=== PATIENT | female | born 1960 | race Caucasian/White ===

== ENCOUNTER 2024-04-10 16:11 | Emergency (ER) | payer MEDICAID ==
[~2024-04-10] VITALS: Ht 170.2 cm; Wt 50.9 kg
[2024-04-10] MEDS ORDERED: CELE-193 PO (19:10)
[2024-04-10] MEDS: ondansetron 4mg rapidly disintigrating tab PO ONE (20:11)
[2024-04-10] MEDS: HYDROcodone/acetaminophen 5mg/325mg tablet PO ONE (20:11)
[2024-04-10 20:15] VITALS: TEMP 98.2
[2024-04-10] MEDS ORDERED: HYDR-3965 PO (20:55)
[2024-04-10] MEDS ORDERED: LIDO700A32 TOP (20:55)
[2024-04-10] MEDS: LIDOcaine 5% patch TP ONE (21:06)
[2024-04-10 21:09] VITALS: BP 99/61; PULSE 82; RESP 16; O2SAT 95
== END 2024-04-10 21:14 | disposition home or self-care (01) ==
LOC: ER 16:12
DX: S22.31XA Fracture of one rib, right side, initial encounter for closed fracture (principal); R07.81 Pleurodynia; Z88.2 Allergy status to sulfonamides; Z88.1 Allergy status to other antibiotic agents; Z79.899 Other long term (current) drug therapy; W06.XXXA Fall from bed, initial encounter; Y93.89 Activity, other specified; Y92.89 Other specified places as the place of occurrence of the external cause; Y99.8 Other external cause status
CPT/HCPCS: 71100; 99284

== ENCOUNTER 2024-05-09 18:48 | Emergency (ER) | payer MEDICAID ==
[~2024-05-09 18:48] MED LIST: HYDR-3965 PO; LIDO700A32 TOP
[2024-05-09 19:02] VITALS: TEMP 97.5
[2024-05-09 19:50] LABS: BASOPHILS % (AUTO) 0.5 % (0-1); EOSINOPHILS % (AUTO) 0.7 % (0-6); HEMATOCRIT 43.1 % (35.0-45.0); HEMOGLOBIN 14.6 g/dl (12.0-16.0); LYMPHOCYTES # (AUTO) 1.7 X10'3 (1.1-4.8); LYMPHOCYTES % (AUTO) 31.1 % (21-51); MEAN CORPUSCULAR HEMOGLOBIN 35.1 PG (27.0-31.0); MEAN CORPUSCULAR HGB CONC 33.9 g/dL (33.0-36.5); MEAN CORPUSCULAR VOLUME 103.4 FL (78-98); MEAN PLATELET VOLUME 6.4 FL (7.4-10.4); MONOCYTES # (AUTO) 0.2 X10'3 (0-0.9); MONOCYTES % (AUTO) 4.3 % (2-12); NEUTROPHILS # (AUTO) 3.6 X10'3 (1.8-7.7); NEUTROPHILS % (AUTO) 63.4 % (42-75); PLATELET COUNT 213 X10'3 (140-440); RED BLOOD COUNT 4.17 X10'6 (4.20-5.60); RED CELL DISTRIBUTION WIDTH 17.6 % (11.5-14.5); WHITE BLOOD COUNT 5.6 X10'3 (4.5-11.0)
[2024-05-09 20:02] LABS: ALANINE AMINOTRANSFERASE 22 U/L (12-78); ALBUMIN 3.3 G/DL (3.4-5.0); ALBUMIN/GLOBULIN RATIO 0.7 (1.1-1.5); ALKALINE PHOSPHATASE 137 IU/L (46-116); ANION GAP 13 (8-16); ASPARTATE AMINO TRANSFERASE 33 U/L (10-37); BILIRUBIN,TOTAL 0.4 MG/DL (0.1-1.0); BLOOD UREA NITROGEN 5 MG/DL (7-18); BUN/CREATININE RATIO 18.5 (10.0-20.0); CALCIUM 8.8 MG/DL (8.5-10.1); CHLORIDE 103 MMOL/L (99-107); CREATININE 0.27 MG/DL (0.40-0.90); GLUCOSE 83 MG/DL (70-104); POTASSIUM 3.4 MMOL/L (3.5-5.1); SODIUM 140 MMOL/L (135-145); TOTAL PROTEIN 7.8 G/DL (6.4-8.2); eGFR > 90 ML/MIN
[2024-05-09 22:19] VITALS: BP 142/83; PULSE 72; RESP 16; O2SAT 96
== END 2024-05-09 22:23 | disposition home or self-care (01) ==
LOC: ER 18:49
DX: M25.522 Pain in left elbow (principal); Z88.0 Allergy status to penicillin; Z88.2 Allergy status to sulfonamides; Z88.8 Allergy status to other drugs, medicaments and biological substances
CPT/HCPCS: 36415; 73080; 80053; 85025; 99284

== ENCOUNTER 2024-07-18 19:55 | Inpatient (IN) | payer MEDICARE, MEDICAID ==
[~2024-07-18] VITALS: Ht 170.2 cm; Wt 52.0 kg
[~2024-07-18 19:55] MED LIST changes: -HYDR-3965 PO
[2024-07-18 20:23] LABS: BASOPHILS % (AUTO) 0.9 % (0-1); HEMATOCRIT 31.3 % (35.0-45.0); HEMOGLOBIN 10.6 g/dl (12.0-16.0); LYMPHOCYTES # (AUTO) 1.1 X10'3 (1.1-4.8); LYMPHOCYTES % (AUTO) 31.1 % (21-51); MEAN CORPUSCULAR HEMOGLOBIN 38.2 PG (27.0-31.0); MEAN CORPUSCULAR HGB CONC 33.8 g/dL (33.0-36.5); MEAN PLATELET VOLUME 6.6 FL (7.4-10.4); MONOCYTES # (AUTO) 0.3 X10'3 (0-0.9); MONOCYTES % (AUTO) 8.2 % (2-12); NEUTROPHILS # (AUTO) 2.1 X10'3 (1.8-7.7); NEUTROPHILS % (AUTO) 58.8 % (42-75); PLATELET COUNT 219 X10'3 (140-440); RED BLOOD COUNT 2.77 X10'6 (4.20-5.60); RED CELL DISTRIBUTION WIDTH 19.9 % (11.5-14.5); WHITE BLOOD COUNT 3.5 X10'3 (4.5-11.0)
[2024-07-18 20:39] LABS: ALANINE AMINOTRANSFERASE 61 U/L (12-78); ALBUMIN 2.7 G/DL (3.4-5.0); ALBUMIN/GLOBULIN RATIO 0.7 (1.1-1.5); ALKALINE PHOSPHATASE 117 IU/L (46-116); ANION GAP 14 (8-16); ASPARTATE AMINO TRANSFERASE 212 U/L (10-37); BILIRUBIN,TOTAL 0.7 MG/DL (0.1-1.0); BLOOD UREA NITROGEN 4 MG/DL (7-18); BUN/CREATININE RATIO 7.8 (10.0-20.0); CALCIUM 8.3 MG/DL (8.5-10.1); CHLORIDE 103 MMOL/L (99-107); CREATININE 0.51 MG/DL (0.40-0.90); GLUCOSE 73 MG/DL (70-104); LIPASE 34 U/L (16-77); POTASSIUM 2.1 MMOL/L (3.5-5.1); SODIUM 142 MMOL/L (135-145); TOTAL CARBON DIOXIDE 25.3 MMOL/L (24-32); TOTAL PROTEIN 6.5 G/DL (6.4-8.2); eCRCL 90 ML/MIN; eGFR > 90 ML/MIN
--- NOTE | 2024-07-18 20:47 | Physician Documentation ---
History of Present Illness ~ General Chief Complaint: Abnormal Lab(s) Stated Complaint: LOW POTASSIUM Time Seen by MD: 20:40 Primary Medical Doctor: OBDULIA Mode of Arrival: EMS History of Present Illness Initial Comments Patient presents to the emergency room for evaluation of abnormal labs. Patient recently moved from [place] and was getting established at [facility] and basic labs were performed and was told to come to the emergency room because of her low potassium. She does endorse significant diarrhea over the past two months ever since she was at [facility] for rehab after a fall. She states she has been feeling generally weak for the past two months. No fevers. She denies history of high blood pressure. No new medications Medication Reconciliation Allergies: Coded Allergies: Penicillins (Verified Allergy, Unknown, rash, 05/09/24) States reaction >5 years ago, describes as a rash and required treatment. Sulfa (Sulfonamide Antibiotics) (Verified Allergy, Unknown, 05/09/24) Tetracyclines (Verified Allergy, Unknown, 05/09/24) Scheduled Lidocaine (Lidoderm), 1 PATCH TOP DAILY Review of Systems ROS All review of systems negative except as per HPI Physical Exam Physical Exam Vital Signs: Temperature: 98.6, Source: Oral, Heart Rate: 96, Respiratory Rate: 16, BP: 143/73, Pulse Oximetry: 96, Weight: 52.000 Oxygen Flow Rate: 0 Physical Exam General: Patient is awake, alert, oriented x4 in no acute distress Head: Normocephalic and atraumatic. Eyes: Conjunctival normal. EOMI. PERRL. ENT: Mucous membranes moist. Neck: Supple, trachea is midline. Chest: Clear to auscultation bilaterally without rales, rhonchi, or wheezes. There is no accessory muscle use or retractions. Cardiac: RRR without murmurs, gallops, or rubs. Abd: Soft, nondistended, nontender, with normoactive bowel sounds. No guarding, rebound, or rigidity. Extremities: Left above the knee amputation noted. Left arm in his sling that has neurovascularly intact. Progress Results/Orders Results/Orders Orders - GEORGI ROTH MD Urinalysis, Cult If Indicated (07/18/24 20:06) Cbc/Diff (07/18/24 20:06) BMP (07/18/24 20:06) Lipase (07/18/24 20:06) CMP (07/18/24 20:06) C Diff Toxin (07/18/24 20:07) Man Diff (07/18/24 20:15) Magnesium Sulf-Water 2g/50ml (Magnesium (07/18/24 21:00) Potassium Cl 40meq/1/2ns 520ml ([place] (07/19/24 00:00) MG (07/18/24 20:15) PHOS (07/18/24 20:15) Completed Orders - GEORGI ROTH MD Electrocardiogram (07/18/24 20:44) Vital Signs 07/18/24 07/18/24 19:56 20:20 Temp 98.6 Pulse 96 Resp 16 B/P (MAP) 143/73 Pulse Ox 96 O2 Flow Rate 0 Laboratory Tests Test 07/18/24 20:15 White Blood Count 3.5 L Red Blood Count 2.77 L Hemoglobin 10.6 L Hematocrit 31.3 L Mean Corpuscular Volume 113.0 H Mean Corpuscular Hemoglobin 38.2 H Mean Corpuscular Hemoglobin Concent 33.8 Red Cell Distribution Width 19.9 H Platelet Count 219 Mean Platelet Volume 6.6 L Neutrophils (%) (Auto) 58.8 Lymphocytes (%) (Auto) 31.1 Monocytes (%) (Auto) 8.2 Eosinophils (%) (Auto) 1.0 Basophils (%) (Auto) 0.9 Neutrophils # (Auto) 2.1 Lymphocytes # (Auto) 1.1 Monocytes # (Auto) 0.3 Eosinophils # (Auto) 0.0 Basophils # (Auto) 0.0 CBC Comment Basophilic Stippling Sodium Level 142 Potassium Level 2.1 *L Chloride Level 103 Carbon Dioxide Level 25.3 Anion Gap 14 Blood Urea Nitrogen 4 L Creatinine 0.51 Estimated GFR/1.73 m2 > 90 BUN/Creatinine Ratio 7.8 L Glucose Level 73 Calcium Level 8.3 L Total Bilirubin 0.7 Aspartate Amino Transf (AST/SGOT) 212 H Alanine Aminotransferase (ALT/SGPT) 61 Alkaline Phosphatase 117 H Total Protein 6.5 Albumin 2.7 L Globulin 3.8 Albumin/Globulin Ratio 0.7 L Lipase 34 Chemistry Comments EKG/XRAY/CT/US/VASC/MRI EKG : Additional Comment EKG interpreted by myself shows time of 2054, rate 91, sinus rhythm, normal axis, no ST changes, prolonged QT Medical Decision Making Findings Patient presented to the emergency room with a report of electrolyte disturbances. Differentials include but are not limited to high potassium, low potassium, high sodium, low sodium, medication side effect, metabolic disturbance therefore emergent labs ordered which confirmed that patient's potassium is significantly low. Empirical magnesium ordered in the light of low potassium as well as prolonged QT. vitals are otherwise stable and she is nontoxic appearing. Departure Admitted to Inpatient Unit: yes, to hospitalist Impression: Primary Impression: Hypokalemia Additional Impressions: Prolonged Q-T interval on ECG Diarrhea Condition: Guarded Referrals: NO PRIMARY CARE PROVIDER (PCP) Signature Scribe Signature: No scribe Attestation: The note accurately reflects work and decisions made by me.Georgi Roth MD 07/18/24 21:07 GEORGI ROTH MD July 18, 2024 20:47
--- NOTE | 2024-07-18 20:55 | ELECTROCARDIOGRAPH REPORT ---
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 Adolfo Galdamez Measurements Intervals [place] Rate: 93 P: 74 [place]: 154 QRS: 108 QRSD: 92 T: 20 QT: 442 QTc: 550 Interpretive Statements Sinus rhythm Right axis deviation Borderline T abnormalities, anterior leads Prolonged QT interval Electronically Signed On 07-18-2024 21:43:[address] Adolfo Galdamez Please click the below link to view image of tracing.
[2024-07-18 21:15] LABS: MAGNESIUM 1.4 MG/DL (1.5-2.4); PHOSPHORUS 3.1 MG/DL (2.3-4.5)
[2024-07-18] MEDS: potassium Cl 40MEQ/1/2NS 520ml 520 ML IV SCH (21:17)
[2024-07-18] MEDS: magnesium sulf-water 2g/50mL 50 ML IV ONE (21:17)
[2024-07-18 21:39] LABS: ANISOCYTOSIS 2+; PLATELET ESTIMATE NORMAL; TOTAL CELLS COUNTED 100
[2024-07-18 21:40] LABS: POLYCHROMASIA FEW
--- NOTE | 2024-07-18 21:41 | RADIOLOGY REPORT ---
CHEST RADIOGRAPH Indication: admission Technique: Single frontal view of the chest was obtained Comparison: None FINDINGS: Lines and Tubes: None Lungs: No focal consolidation. Pleura: No effusion. No pneumothorax. Cardiomediastinal contours: Unremarkable Bones: No acute osseous abnormality. IMPRESSION: 1. No acute cardiopulmonary disease.
[2024-07-18] MEDS ORDERED: magnesium sulf-water 2g/50mL 50 ML IV PRN (22:45)
[2024-07-18] MEDS ORDERED: mag hydrox/Alum hydrox/simeth 30ml oral suspension PO PRN (22:45)
[2024-07-18] MEDS ORDERED: ondansetron/PF 4mg/2ml inj IV PRN (22:45)
[2024-07-18] MEDS ORDERED: HYDROcodone/acetaminophen 10/325mg tab PO PRN (22:45)
[2024-07-18] MEDS ORDERED: magnesium sulf-water 4G/100mL 100 ML IV PRN (22:45)
[2024-07-18] MEDS ORDERED: magnesium hydroxide 30ml (MOM) UD suspension PO PRN (22:45)
[2024-07-18] MEDS ORDERED: potassium Cl 20 mEq SR tablet PO PRN (22:45)
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
[2024-07-18 23:06] LABS: HEMOGLOBIN A1C 4.4 % (4.5-6.2)
[2024-07-18] MEDS: normal saline 1000ml 1,000 ML IV SCH (23:23)
[2024-07-18 23:45] LABS: BILIRUBIN,URINE NEGATIVE (Neg); CLARITY,URINE CLEAR (Clear); COLOR,URINE YELLOW (Yellow); GLUCOSE, URINE NEGATIVE (Neg); KETONES,URINE 15 mg/dl (Neg); LEUKOCYTE ESTERASE ,URINE NEGATIVE (Neg); NITRITES, URINE NEGATIVE (Neg); OCCULT BLOOD,URINE NEGATIVE (Neg); PROTEIN,URINE TRACE mg/dl (Neg)
[2024-07-18 23:50] LABS: UA COLLECTION TYPE VOIDED
[2024-07-18 23:51] LABS: AMORPHOUS PHOSPHATES 1+; BACTERIA,URINE NONE SEEN /HPF (Neg); MUCUS STRANDS FEW /LPF (Neg); RBC,URINE 0-2 /HPF (0-2); SQUAMOUS EPITHELIAL CELL,UR NONE SEEN /LPF (FEW); WBC,URINE NONE SEEN /HPF (0-4)
[2024-07-19] MEDS ORDERED: haloperidol lactate 5mg/ml inj IM PRN (01:10)
[2024-07-19] MEDS ORDERED: LORazepam 1 MG tablet PO PRN (01:10)
[2024-07-19] MEDS: diazepam inj 5 MG/ML inj. IV ONE (01:34)
[2024-07-19 01:42] LABS: BASOPHILS % (AUTO) 0.9 % (0-1); EOSINOPHILS % (AUTO) 1.2 % (0-6); HEMATOCRIT 32.4 % (35.0-45.0); HEMOGLOBIN 10.6 g/dl (12.0-16.0); LYMPHOCYTES # (AUTO) 0.6 X10'3 (1.1-4.8); LYMPHOCYTES % (AUTO) 16.4 % (21-51); MEAN CORPUSCULAR HEMOGLOBIN 37.5 PG (27.0-31.0); MEAN CORPUSCULAR HGB CONC 32.8 g/dL (33.0-36.5); MEAN CORPUSCULAR VOLUME 114.4 FL (78-98); MONOCYTES # (AUTO) 0.2 X10'3 (0-0.9); MONOCYTES % (AUTO) 6.1 % (2-12); NEUTROPHILS # (AUTO) 2.9 X10'3 (1.8-7.7); NEUTROPHILS % (AUTO) 75.4 % (42-75); PLATELET COUNT 210 X10'3 (140-440); RED BLOOD COUNT 2.83 X10'6 (4.20-5.60); RED CELL DISTRIBUTION WIDTH 19.5 % (11.5-14.5); WHITE BLOOD COUNT 3.9 X10'3 (4.5-11.0)
[2024-07-19 01:57] LABS: ALANINE AMINOTRANSFERASE 58 U/L (12-78); ALBUMIN 2.6 G/DL (3.4-5.0); ALBUMIN/GLOBULIN RATIO 0.7 (1.1-1.5); ALKALINE PHOSPHATASE 116 IU/L (46-116); ANION GAP 13 (8-16); ASPARTATE AMINO TRANSFERASE 195 U/L (10-37); BILIRUBIN,TOTAL 0.8 MG/DL (0.1-1.0); BLOOD UREA NITROGEN 7 MG/DL (7-18); BUN/CREATININE RATIO 11.5 (10.0-20.0); CALCIUM 8.3 MG/DL (8.5-10.1); CHLORIDE 104 MMOL/L (99-107); CREATININE 0.61 MG/DL (0.40-0.90); GLUCOSE 104 MG/DL (70-104); MAGNESIUM 1.6 MG/DL (1.5-2.4); SODIUM 141 MMOL/L (135-145); TOTAL CARBON DIOXIDE 23.8 MMOL/L (24-32); TOTAL PROTEIN 6.1 G/DL (6.4-8.2); eCRCL 75 ML/MIN; eGFR > 90 ML/MIN
[2024-07-19 01:59] LABS: POTASSIUM 2.8 MMOL/L (3.5-5.1)
[2024-07-19] MEDS: diazepam inj 5 MG/ML inj. IV PRN (03:11)
[2024-07-19] MEDS ORDERED: GABA300T28 PO (04:24)
[2024-07-19] MEDS ORDERED: BUSP10TA3 PO (04:24)
[2024-07-19] MEDS ORDERED: CITA40TA30 PO (04:24)
[2024-07-19] MEDS ORDERED: LEVO25TA7 PO (04:24)
--- NOTE | 2024-07-19 06:17 | ELECTROCARDIOGRAPH REPORT ---
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 Adolfo Galdamez Measurements Intervals [place] Rate: 91 P: 69 PA: 159 QRS: 108 QRSD: 85 T: -34 QT: 446 QTc: 549 Interpretive Statements Sinus rhythm Right axis deviation Borderline T abnormalities, diffuse leads Prolonged QT interval Electronically Signed On 07-20-2024 6:41:[address] Adolfo Galdamez Please click the below link to view image of tracing.
[2024-07-19 06:53] LABS: CHOLESTEROL 201 MG/DL (0-200); HDL CHOLESTEROL 100 MG/DL (35-60); LDL CHOLESTEROL 79 MG/DL (50-100); TRIGLYCERIDES 104 MG/DL (20-135)
[2024-07-19] MEDS: pantoprazole 40mg Tablet.DR PO SCH (07:02)
[2024-07-19] MEDS: K and/or MAG REPLACEMENT MC SCH (07:31)
[2024-07-19] MEDS: heparin, porcine 5000 units/ml vial SQ SCH (07:31)
[2024-07-19] MEDS: folic acid 1mg/0.2ml inj IV SCH (08:05)
[2024-07-19] MEDS: thiamine 100mg/ml 2ml inj. IV SCH (08:05)
[2024-07-19] MEDS: HYDROcodone/acetaminophen 5mg/325mg tablet PO PRN (10:25)
[2024-07-19 13:00] VITALS: RESP 16; O2SAT 98
[2024-07-19] MEDS: oxyCODONE/APAP 10/325mg tablet PO PRN ×2 (13:50→19:46)
[2024-07-19 15:33] LABS: OCCULT BLOOD STOOL NEGATIVE (Neg)
[2024-07-19 16:26] LABS: C DIFF ANTIGEN NEGATIVE (NEGATIVE); C DIFF SPECIMEN=DIARRHEA? ACCEPTABLE; C DIFFICILE TOXINS A&B NEGATIVE (Neg)
[2024-07-19] MEDS: acetaminophen 325mg tablet PO PRN (17:56)
[2024-07-19 18:00] VITALS: BP 137/80; PULSE 91; RESP 16; TEMP 97; O2SAT 98
[2024-07-19] MEDS: potassium Cl 40MEQ/1/2NS 520ml 520 ML IV PRN (18:45)
[2024-07-19] MEDS: loperamide 2mg capsule PO ONE (19:43)
--- NOTE | 2024-07-19 19:55 | PROGRESS NOTE ---
Daily Progress Note Providers to CC ~ Antibiotic Timeout Antibiotic Ordered?: No Subjective The patient has not no signs of alcohol withdrawal currently- the patient has been experiencing diarrhea and her serum potassium remains low- Objective Vital Signs Date Time Temp Pulse Resp B/P (MAP) Pulse Ox O2 Delivery O2 Flow Rate FiO2 07/19/24 19:46 18 07/19/24 18:00 97.0 91 137/80 (99) 98 Room Air 07/19/24 13:00 0.0 Result Diagram: 07/19/24 0135 07/19/24 1025 Gen. No acute distress alert and oriented 4 Lungs clear to ascultation bilaterally, no wheezes rales or rhonchi appreciated Heart normal sinus rhythm no murmurs rubs or clicks noted Abdomen soft nontender bowel sounds are normoactive Lower extremities no clubbing cyanosis, nor edema appreciated bilaterally, stump is clean dry and intact on the left Problem\Assessment\Plan # hypokalemia likely secondary to diarrhea on potassium replacement protocol # diarrhea Stool is negative for C difficile enterocolitis Abdominal exam is benign- if the patient develops significant abdominal discomfort or there was a change in her exam then imaging studies will be obtained # regular alcohol use- Prn IV diazepam and p.o. lorazepam for any signs of withdrawal # hypothyroidism Continue levothyroxine # DVT prophylaxis SQ heparin Date of Service: July 19, 2024 Billing Provider: HERMES RODRIGUEZ DO Common Visit Codes: [id number] INP/OBS CARE(HIGH) HERMES RODRIGUEZ DO July 19, 2024 19:55
[2024-07-19 20:00] VITALS: RESP 16; O2SAT 96
[2024-07-19] MEDS: busPIRone 5mg tablet PO SCH (21:26)
[2024-07-19] MEDS: gabapentin 300mg capsule PO SCH (21:26)
[2024-07-19 22:00] VITALS: BP 119/78; PULSE 91; RESP 16; TEMP 97.6; O2SAT 98
[2024-07-20 03:04] LABS: BASOPHILS % (AUTO) 0.4 % (0-1); EOSINOPHILS % (AUTO) 1.1 % (0-6); HEMOGLOBIN 10.7 g/dl (12.0-16.0); LYMPHOCYTES # (AUTO) 1.2 X10'3 (1.1-4.8); MEAN CORPUSCULAR HEMOGLOBIN 38.5 PG (27.0-31.0); MEAN CORPUSCULAR HGB CONC 33.4 g/dL (33.0-36.5); MEAN CORPUSCULAR VOLUME 115.1 FL (78-98); MEAN PLATELET VOLUME 7.2 FL (7.4-10.4); MONOCYTES # (AUTO) 0.2 X10'3 (0-0.9); MONOCYTES % (AUTO) 6.3 % (2-12); NEUTROPHILS % (AUTO) 58.2 % (42-75); PLATELET COUNT 189 X10'3 (140-440); RED BLOOD COUNT 2.78 X10'6 (4.20-5.60); WHITE BLOOD COUNT 3.5 X10'3 (4.5-11.0)
[2024-07-20 03:17] LABS: ALANINE AMINOTRANSFERASE 42 U/L (12-78); ALBUMIN 2.6 G/DL (3.4-5.0); ALBUMIN/GLOBULIN RATIO 0.8 (1.1-1.5); ALKALINE PHOSPHATASE 104 IU/L (46-116); ANION GAP 9 (8-16); ASPARTATE AMINO TRANSFERASE 86 U/L (10-37); BILIRUBIN,TOTAL 0.8 MG/DL (0.1-1.0); BLOOD UREA NITROGEN 6 MG/DL (7-18); BUN/CREATININE RATIO 10.7 (10.0-20.0); CALCIUM 8.4 MG/DL (8.5-10.1); CHLORIDE 109 MMOL/L (99-107); CREATININE 0.56 MG/DL (0.40-0.90); GLUCOSE 100 MG/DL (70-104); LIPASE 35 U/L (16-77); MAGNESIUM 1.2 MG/DL (1.5-2.4); POTASSIUM 3.4 MMOL/L (3.5-5.1); SODIUM 144 MMOL/L (135-145); TOTAL CARBON DIOXIDE 25.8 MMOL/L (24-32); eCRCL 82 ML/MIN; eGFR > 90 ML/MIN
[2024-07-20] MEDS: magnesium Cl slow-release 64mg tablet PO PRN (03:31)
[2024-07-20] MEDS: potassium Cl 20 mEq SR tablet PO PRN (03:31)
[2024-07-20 06:00] VITALS: BP 90/59; PULSE 87; RESP 18; TEMP 97.4; O2SAT 97
[2024-07-20 07:11] LABS: INR 1.1 INR
[2024-07-20] MEDS: citalopram 20mg tablet PO SCH (07:38)
[2024-07-20] MEDS: levoTHYROXINE 25mcg tablet PO SCH (07:39)
[2024-07-20 08:00] VITALS: RESP 16; O2SAT 98
[2024-07-20] MEDS ORDERED: potassium phosphate inj 30 MMOL in normal saline 250ml IV soln 250 ML IV ONE (08:30)
[2024-07-20 10:00] VITALS: BP 115/73; PULSE 104; RESP 16; TEMP 97.7; O2SAT 98
[2024-07-20] MEDS ORDERED: MAGN200T8 PO (11:02)
[2024-07-20] MEDS ORDERED: POTA-207 PO (11:02)
[2024-07-20] MEDS: magnesium sulf-water 4G/100mL 100 ML IV ONE (12:21)
[2024-07-20] MEDS: potassium phosphate inj 30 MMOL in normal saline 500ml IV soln 500 ML IV ONE (13:00)
[2024-07-20 20:00] VITALS: RESP 16; O2SAT 98
[2024-07-20 20:39] LABS: MAGNESIUM 2.2 MG/DL (1.5-2.4); PHOSPHORUS 4.1 MG/DL (2.3-4.5); POTASSIUM 4.6 MMOL/L (3.5-5.1)
--- NOTE | 2024-07-20 21:00 | DISCHARGE SUMMARY ---
Discharge Summary Providers to CC ~ Discharge Summary Admission Diagnosis: Electrolyte imbalance, diarrhea Hospital Course DATE OF ADMISSION: 07/18/2024 DATE OF DISCHARGE: 07/20/2024 Discharge Diagnosis\\Comment: Hypokalemia and hypomagnesemia, diarrhea likely secondary to viral gastroenteritis, regular alcohol use, hypothyroidism Operations\\Procedures: None Consultants: None Complications: None Condition on DC: Stable New Medications: Magnesium Oxide (Mag-Oxide) 200 Mg Magnesium Tablet 2 TAB PO DAILY for 30 Days, #60 TAB 0 Refills Potassium Chloride* (K-Dur*) 20 Meq Tab.prt.sr 2 TAB PO DAILY, #60 TAB Continued Medications: Buspirone HCl (Buspirone HCl) 10 Mg Tablet 1 TAB PO BID Citalopram Hydrobromide (Citalopram HBr) 40 Mg Tablet 1 TAB PO DAILY Gabapentin (Gabapentin ER) 300 Mg Tab.er.24h 1 CAP PO QID Levothyroxine Sodium (Levothyroxine Sodium) 25 Mcg Tablet 1 TAB PO QAM Discharge Summary: The patient was [facility] under the supervision of FERNANDO Rodriguez MD with the following HPI:"64-year-old female patient with past medical history of chronic back pain, hypothyroidism, SBO came to the hospital with chief complaint of generalized weakness. The patient reports that she has been feeling weakness for the past three weeks, associated to these symptoms she also endorses diarrhea, brownish in color, liquid, she endorses three episodes of watery diarrhea today, she endorses that during the last three weeks she has been having at least five episodes of diarrhea per day. The patient also mentioned some associated nausea and abdominal pain, 9/10 in intensity localized in the lower abdomen, described as a colicky type, no radiation. The patient currently denies any chest pain, shortness of breath, palpitations." Her stool sample was negative for C difficile enterocolitis in her abdominal exam was unremarkable thus no imaging studies were warranted. The patient was given a dose of Imodium and her diarrhea resolved The patient's serum potassium was 2.1 on admission and a morning of discharge had improved to 3.4 with potassium replacement the patient received an additional potassium replacement in her serum potassium was 4.6 at the time of discharge The patient had a serum magnesium level of 1.2 on the morning of discharge and the patient received IV magnesium 4 g in her serum magnesium increased to 2.2. The patient was discharged with a prescription of 40 mEq of oral potassium daily and magnesium oxide 400 mg daily with recommendation to recheck a basic metabolic panel and serum magnesium level in one-week Gen. No acute distress alert and oriented 4 Lungs clear to ascultation bilaterally, no wheezes rales or rhonchi appreciated Heart normal sinus rhythm no murmurs rubs or clicks noted Abdomen soft nontender bowel sounds are normoactive Lower extremities no clubbing cyanosis, nor edema appreciated bilaterally, stump is clean dry and intact on the left The patient felt ready to be discharged and was medically cleared to be discharged on 07/20/2024 The patient was seen and evaluated on day of discharge. Time spent on discharge 35 minutes *Problems/Diagnosis: (1) Hypomagnesemia Total Time Spent on D/C: > 30 Minutes Date of Service: July 20, 2024 Billing Provider: HERMES RODRIGUEZ DO Common Visit Codes: 52254-STU/OBS DISCH DAY >30min HERMES RODRIGUEZ DO July 20, 2024 20:59
[2024-07-22] MEDS ORDERED: thiamine 100mg tablet PO SCH (08:00)
[2024-07-23] MEDS ORDERED: folic acid 1mg tablet PO SCH (08:00)
== END 2024-07-20 22:10 | disposition home or self-care (01) | DRG 641 ==
LOC: ER 19:56 → ED HOLD 22:49 → ORTHO 4S 07-19 12:20
PROVIDERS: ADMIT Internal Medicine Pulmonary Disease; ATTEND Family Medicine
DX: E87.6 Hypokalemia (principal); E44.1 Mild protein-calorie malnutrition; F10.139 Alcohol abuse with withdrawal, unspecified; Z68.1 Body mass index [BMI] 19.9 or less, adult; E03.9 Hypothyroidism, unspecified; G89.29 Other chronic pain; A08.4 Viral intestinal infection, unspecified; M54.9 Dorsalgia, unspecified; F17.210 Nicotine dependence, cigarettes, uncomplicated; D53.9 Nutritional anemia, unspecified; Y90.9 Presence of alcohol in blood, level not specified; E83.42 Hypomagnesemia; Z88.1 Allergy status to other antibiotic agents; Z79.899 Other long term (current) drug therapy
CPT/HCPCS: 36415; 71045; 80053; 80061; 81001; 82272; 82607; 82948; 83036; 83690; 83735; 84100; 84132; 85007; 85025; 85610; 87045; 87046; 87081; 87324; 87449; 89055; 93005; 96365; 96366; 99285; A6213; G0378; J1644; J3360; J3411; J3475; J3480; J3490; J7030; J7040